=== PATIENT | female | born 1965 | race Caucasian/White ===

== ENCOUNTER 2018-10-21 09:22 | Emergency (ER) | payer MEDICARE, SELFPAY ==
[2018-10-21] VITALS (52 sets, daily range): BP systolic 90–148; BP diastolic 39–123; PULSE 0–144; RESP 9–31; TEMP 36.6; O2SAT 75–99
--- NOTE | 2018-10-21 09:36 | W.ED.GENAD ---
Discharge Plan Disposition Patient Disposition: HOME Condition: Improving Discharge Details Chief Complaint: Dizzy/Sync Clinical Impression: Dehydration, Dizziness, UTI (urinary tract infection) Primary Care Provider: Shauna,Local ED Provider: Myriam Quesada Home Meds and New Rx's Prescriptions: New cephalexin [Keflex] 500 mg capsule 500 mg PO BID 7 Days Qty: 14 RF: 0 Continued carvedilol 25 mg Tablet 50 mg PO BID RF: 0 hydroxyzine HCl 25 mg Tablet 25 mg PO DAILY RF: 0 losartan 100 mg Tablet 100 mg PO DAILY RF: 0 levothyroxine 137 mcg Capsule 137 mcg PO BID RF: 0 glipizide 10 mg Tablet 10 mg PO DAILY RF: 0 omeprazole 40 mg Capsule,Delayed Release(Dr/Ec) 40 mg PO DAILY RF: 0 gabapentin 300 mg Capsule 300 mg PO BID RF: 0 diphenhydramine-acetaminophen [Tylenol PM Extra Strength] 25-500 mg Tablet 1 tab PO BID RF: 0 duloxetine 60 mg Capsule,Delayed Release(Dr/Ec) 60 mg PO DAILY RF: 0 spironolactone 50 mg Tablet 50 mg PO DAILY RF: 0 metformin 500 mg Tablet 500 mg PO BID RF: 0 aspirin 81 mg Tablet,Chewable 81 mg PO DAILY RF: 0 Discharge Instructions Instructions: Dehydration (ED), Urinary Tract Infection in Women (ED), Dizziness (ED) Additional Instructions: Drink plenty of fluids and get plenty of rest. Your thyroid tests were noted to be slightly high indicating that you should possibly lower your dose of your levothyroxine. You can discuss this with your primary care doctor for medication management. Take the antibiotics until finished. Alternate Tylenol and Motrin as needed and directed for pain. Follow-up with your primary care doctor within 1 week for reevaluation. Return to the emergency department if you develop any worsening or new concerning symptoms. Discharge Data Discharge Date/Time-TO BE ENTERED AT DEPARTURE: 10/21/18 16:09 Discharge Physician: Myriam Quesada Medical Decision Making 53yo F w/ a h/o diabetes, melanoma, cardiomyopathy, hypertension, hypertension, hypothyroidism, asthma and Crohn's disease, appendectomy, cholecystectomy, hysterectomy, pacemaker/AICD who presents to the ED with a complaint of dizziness, headache, back pain, fatigue as well as hyperglycemia and hypotension at work today. BP on arrival 90/50. She is afebrile. She appears generally fatigued but nontoxic. Abdomen soft but tender in the right upper quadrant and across lower abdomen. EKG done on arrival notes a rate of 83, sinus with no acute ST ischemic changes. Differential diagnosis includes dehydration, electrolyte abnormality, pneumonia, UTI, acute abdominal abnormality. She has no pulsatile mass, so doubt AAA rupture, but will obtain a CT abdomen and pelvis CTA to rule out acute process. She denies any chest pain or shortness of breath so doubt ACS. 1100 --labs reviewed. Normal white blood cell count, electrolytes. Glucose 268. Lactate 2.8. Magnesium 1.5. Troponin negative. TSH 0.06. Free T4 1.8. CT negative for any acute process. We will continue IV fluids, urine pending. 1440 --patient feels much better after fluids and eating food here. Urinalysis notes findings consistent with possible UTI. Will give dose of antibiotics here. Blood pressure 126/74. She appears comfortable and in no acute distress. Repeat lactate downtrending but still at 2. Patient was offered additional IV fluids but she is declining stating her right is coming. She states she feels much better would like to go home. She is advised to follow-up with her primary care doctor for reevaluation and to return here at any time if worse. Medical Records Medical records reviewed: Yes I reviewed the patient's medical records. Imaging Data Radiologic Study: Radiologist's impression: PA AND LATERAL CHEST: The heart is not enlarged. There is a transvenous cardiac pacemaker in position. The lungs are clear. No pleural effusions seen. CONCLUSION: No evidence of acute process. ABDOMEN AND PELVIC CTA: CT angiography was performed with multi slice acquisition and multi planar and 3D reconstruction. CT angiography was performed with intravenous infusion of 100 cc's of Omnipaque 350. Superior most aspect of the liver is not included on the scanning field. Liver, spleen and pancreas appear grossly unremarkable. 1.5 cm. left adrenal nodule of low attenuation, likely benign. The kidneys are unremarkable in appearance. No abdominal or pelvic adenopathy. No significant abdominal wall hernia. Appendix appears to have been surgically removed. No evidence of bowel obstruction. Abdominal aorta is of normal diameter. No dissection or aneurysm. Major aortic branches appear normal. CONCLUSION: Negative CTA abdomen/pelvis. Note is made of degenerative changes of the lumbar spine with multi level disc space narrowing and hypertrophic changes of the endplates and facet joints, Lab Data Lab results reviewed: Yes I reviewed the patient's lab results. 10/21/18 13:15 Urine - Reflex from Ua Urine Culture - Pending Laboratory Tests Range/Units 10/21/18 10/21/18 10/21/18 09:44 09:44 09:44 WBC (4.4-10.8) k/cumm 9.45 RBC (4.00-5.20) m/cumm 4.29 Hgb (12.0-15.5) g/dL 12.9 Hct (36.0-46.0) % 39.0 MCV (80-95) fL 90.9 MCH (27.0-33.0) pg 30.1 MCHC (32.0-36.0) g/dL 33.1 RDW (11.7-14.6) % 13.2 Plt Count (130-400) x1000/uL 462 H MPV (8.0-11.0) fL 9.5 Immature Gran % 0.2 Neutrophils % 74.4 Lymphocytes % 15.2 Monocytes % 6.3 Eosinophils % 3.5 Basophils % 0.4 Absolute Neutrophils (1.2-6.7) k/cumm 7.02 H Absolute Lymphocytes (1.2-3.4) k/cumm 1.44 Absolute Monocytes (0.11-0.7) k/cumm 0.60 Absolute Eosinophils (0.0-0.7) k/cumm 0.33 Absolute Basophils (0.0-0.2) k/cumm 0.04 PT (9.3-11.0) sec 9.8 INR (0.9-1.1) 1.0 Sodium (136-145) mmol/L 138 Potassium (3.5-5.1) mmol/L 3.8 Chloride (98-107) mmol/L 102 Carbon Dioxide (21.0-32.0) mmol/L 25.3 Anion Gap (3-11) mmol/L 10.7 BUN (7-18) mg/dL 11 Creatinine (0.55-1.02) mg/dL 0.82 Estimated GFR/1.73 m2 (mL/min/1.73m2) >= 60.00 Glucose (70-100) mg/dL 268 H Lactate (0.6-1.4) mmol/L Calcium (8.5-10.1) mg/dL 9.2 Magnesium (1.8-2.4) mg/dL 1.5 L Total Bilirubin (0.2-1.0) mg/dL 0.4 Conjugated Bilirubin (0.00-0.20) mg/dL 0.10 AST (15-37) U/L 24 ALT (12-78) U/L 43 Alkaline Phosphatase (46-116) U/L 101 Troponin I (0.00-0.06) ng/mL < 0.05 Total Protein (6.4-8.2) g/dL 7.7 Albumin (3.4-5.0) g/dL 3.5 TSH (0.36-3.74) uIU/mL 0.06 L Free T4 (0.76-1.46) ng/dL Urine Color (Yellow) Urine Clarity (Clear) Urine pH (5-8) Ur Specific [place] (1.005-1.025) Urine Protein (Negative) mg/dL Urine Ketones (Negative) mg/dL Urine Blood (Negative) Urine Nitrite (Negative) Urine Bilirubin (Negative) Urine Urobilinogen (Up TO 0.2) EU/dL Ur Leukocyte Esterase (Negative) Urine RBC (0-2) Urine WBC (0-5) HPF Ur Epithelial Cells (Negative) HPF Urine Crystals (Negative) HPF Urine Bacteria (Negative) HPF Urine Casts (Negative) LPF Urine Mucus (Negative) Ur Culture Indicated? Urine Glucose (Negative) mg/dL Range/Units 10/21/18 10/21/18 10/21/18 10:30 10:30 13:15 WBC (4.4-10.8) k/cumm RBC (4.00-5.20) m/cumm Hgb (12.0-15.5) g/dL Hct (36.0-46.0) % MCV (80-95) fL MCH (27.0-33.0) pg MCHC (32.0-36.0) g/dL RDW (11.7-14.6) % Plt Count (130-400) x1000/uL MPV (8.0-11.0) fL Immature Gran % Neutrophils % Lymphocytes % Monocytes % Eosinophils % Basophils % Absolute Neutrophils (1.2-6.7) k/cumm Absolute Lymphocytes (1.2-3.4) k/cumm Absolute Monocytes (0.11-0.7) k/cumm Absolute Eosinophils (0.0-0.7) k/cumm Absolute Basophils (0.0-0.2) k/cumm PT (9.3-11.0) sec INR (0.9-1.1) Sodium (136-145) mmol/L Potassium (3.5-5.1) mmol/L Chloride (98-107) mmol/L Carbon Dioxide (21.0-32.0) mmol/L Anion Gap (3-11) mmol/L BUN (7-18) mg/dL Creatinine (0.55-1.02) mg/dL Estimated GFR/1.73 m2 (mL/min/1.73m2) Glucose (70-100) mg/dL Lactate (0.6-1.4) mmol/L 2.8 H* Calcium (8.5-10.1) mg/dL Magnesium (1.8-2.4) mg/dL Total Bilirubin (0.2-1.0) mg/dL Conjugated Bilirubin (0.00-0.20) mg/dL AST (15-37) U/L ALT (12-78) U/L Alkaline Phosphatase (46-116) U/L Troponin I (0.00-0.06) ng/mL Total Protein (6.4-8.2) g/dL Albumin (3.4-5.0) g/dL TSH (0.36-3.74) uIU/mL Free T4 (0.76-1.46) ng/dL 1.80 H Urine Color (Yellow) Yellow Urine Clarity (Clear) Sl cloudy Urine pH (5-8) 6.0 Ur Specific [place] (1.005-1.025) 1.010 Urine Protein (Negative) mg/dL Negative Urine Ketones (Negative) mg/dL Negative Urine Blood (Negative) Negative Urine Nitrite (Negative) Positive H Urine Bilirubin (Negative) Negative Urine Urobilinogen (Up TO 0.2) EU/dL 0.2 Ur Leukocyte Esterase (Negative) Negative Urine RBC (0-2) 0-2 Urine WBC (0-5) HPF 0-2 Ur Epithelial Cells (Negative) HPF Rare Urine Crystals (Negative) HPF Negative Urine Bacteria (Negative) HPF Many Urine Casts (Negative) LPF Negative Urine Mucus (Negative) Negative Ur Culture Indicated? Yes Urine Glucose (Negative) mg/dL Negative Range/Units 10/21/18 15:21 WBC (4.4-10.8) k/cumm RBC (4.00-5.20) m/cumm Hgb (12.0-15.5) g/dL Hct (36.0-46.0) % MCV (80-95) fL MCH (27.0-33.0) pg MCHC (32.0-36.0) g/dL RDW (11.7-14.6) % Plt Count (130-400) x1000/uL MPV (8.0-11.0) fL Immature Gran % Neutrophils % Lymphocytes % Monocytes % Eosinophils % Basophils % Absolute Neutrophils (1.2-6.7) k/cumm Absolute Lymphocytes (1.2-3.4) k/cumm Absolute Monocytes (0.11-0.7) k/cumm Absolute Eosinophils (0.0-0.7) k/cumm Absolute Basophils (0.0-0.2) k/cumm PT (9.3-11.0) sec INR (0.9-1.1) Sodium (136-145) mmol/L Potassium (3.5-5.1) mmol/L Chloride (98-107) mmol/L Carbon Dioxide (21.0-32.0) mmol/L Anion Gap (3-11) mmol/L BUN (7-18) mg/dL Creatinine (0.55-1.02) mg/dL Estimated GFR/1.73 m2 (mL/min/1.73m2) Glucose (70-100) mg/dL Lactate (0.6-1.4) mmol/L 2.0 H Calcium (8.5-10.1) mg/dL Magnesium (1.8-2.4) mg/dL Total Bilirubin (0.2-1.0) mg/dL Conjugated Bilirubin (0.00-0.20) mg/dL AST (15-37) U/L ALT (12-78) U/L Alkaline Phosphatase (46-116) U/L Troponin I (0.00-0.06) ng/mL Total Protein (6.4-8.2) g/dL Albumin (3.4-5.0) g/dL TSH (0.36-3.74) uIU/mL Free T4 (0.76-1.46) ng/dL Urine Color (Yellow) Urine Clarity (Clear) Urine pH (5-8) Ur Specific [place] (1.005-1.025) Urine Protein (Negative) mg/dL Urine Ketones (Negative) mg/dL Urine Blood (Negative) Urine Nitrite (Negative) Urine Bilirubin (Negative) Urine Urobilinogen (Up TO 0.2) EU/dL Ur Leukocyte Esterase (Negative) Urine RBC (0-2) Urine WBC (0-5) HPF Ur Epithelial Cells (Negative) HPF Urine Crystals (Negative) HPF Urine Bacteria (Negative) HPF Urine Casts (Negative) LPF Urine Mucus (Negative) Ur Culture Indicated? Urine Glucose (Negative) mg/dL ECG Data Attestation: I personally reviewed and interpreted this ECG (s) as follows: Interpretation: Rate of 83, sinus, no acute ST elevation or depression. LA 196. QTc 439. QRS 98. HPI General Mode of arrival: ambulatory. Date/Time Provider Initiated Documentation: 10/21/18 09:23. Limitations to Documentation: no limitations. Information obtained by: patient. HPI Narrative: Patient is a 53-year-old female with history of diabetes, melanoma, cardiomyopathy, hypertension, hypothyroidism, asthma who presents to the ED with complaint of dizziness, headache, abdominal pain and back pain for the past 2 days. She admits to multiple dizzy spells at work for the past few days. She states she is also had intermittent diarrhea for the past 3 days states it has been watering brown and denies any bleeding. Her glucose at work today was 276. Her blood pressure was 86/56. 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 She denies fever, chest pain, shortness of breath, nausea, vomiting, blurry vision, urinary symptoms. She states she has had lower back pain for several months but states it has been worse for the past few days. She states her headache is frontal and in the back of her head and currently 7/10. She states she took Tylenol at 730 this morning without relief. Related Data Home Medications Medication Instructions Recorded Confirmed aspirin 81 mg PO DAILY 10/21/18 10/21/18 carvedilol 50 mg PO BID 10/21/18 10/21/18 cephalexin [Keflex] 500 mg PO BID 7 Days #14 cap 10/21/18 diphenhydramine-acetaminophen 1 tab PO BID 10/21/18 10/21/18 [Tylenol PM Extra Strength] duloxetine 60 mg PO DAILY 10/21/18 10/21/18 gabapentin 300 mg PO BID 10/21/18 10/21/18 glipizide 10 mg PO DAILY 10/21/18 10/21/18 hydroxyzine HCl 25 mg PO DAILY 10/21/18 10/21/18 levothyroxine 137 mcg PO BID 10/21/18 10/21/18 losartan 100 mg PO DAILY 10/21/18 10/21/18 metformin 500 mg PO BID 10/21/18 10/21/18 omeprazole 40 mg PO DAILY 10/21/18 10/21/18 spironolactone 50 mg PO DAILY 10/21/18 10/21/18 Previous Rx's Medication Instructions Recorded cephalexin [Keflex] 500 mg PO BID 7 Days #14 cap 10/21/18 Allergies Allergy/AdvReac Type Severity Reaction Status Date / Time erythromycin base Allergy Hives Unverified 10/21/18 09:33 Sulfa (Sulfonamide Allergy Hives Unverified 10/21/18 09:30 Antibiotics) General Stated Complaint: Dizzy/Sync SUNDAR: 2 Review of Systems Review of Systems All systems reviewed & are unremarkable except as noted in HPI and below Constitutional Reports as per HPI, Denies chills and Denies fever(s) Eyes Denies blurry vision ENT Reports dizziness, Denies sore throat and Denies throat swelling Cardiovascular Denies chest pain and Denies dyspnea Respiratory Denies cough and Denies dyspnea Gastrointestinal Denies abdominal pain, Denies diarrhea and Denies vomiting Genitourinary Denies hematuria and Denies dysuria Musculoskeletal Denies back pain and Denies numbness Integumentary/Breasts Denies lesions and Denies rash Neurologic Reports dizziness, Denies focal weakness and Denies numbness Allergic/Immunologic Denies throat swelling [facility] Medical History Asthma (Chronic) Cardiomyopathy (Acute) Diabetes (Chronic) History of hysterectomy (Chronic) HTN (hypertension) (Chronic) Hypothyroidism (Chronic) Melanoma (Acute) Osteoarthritis (Chronic) Surgical History AICD (automatic cardioverter/defibrillator) present (Acute) History of appendectomy (Chronic) History of tonsillectomy (Chronic) Hx of cholecystectomy (Chronic) Pacemaker (Acute) Social History Smoking/Tobacco Use Status: Former Tobacco Use Quit Date: 04/02/86 Alcohol Intake: never Substance use type: does not use Do you feel safe at home: Yes Do you feel safe in your relationship?: Yes Exam Const General: cooperative, healthy appearing and no acute distress HENMT Head: normal to inspection Face and sinus: normal facial exam Eyes General: appearance normal, both eyes and all related structures Pupils: PERRL EOM: EOM intact bilaterally Neck Neck: normal visual inspection and No submandibular swelling Lymphatic: no lymphadenopathy noted Chest Chest: normal inspection of the chest and no tenderness Resp Effort & Inspection: normal respiratory effort and able to speak in complete sentences Auscultation: clear to auscultation bilaterally Cardio Rate: regular rate Rhythm: regular rhythm GI Inspection: normal to inspection and obesity Palpation: soft, not firm, not rigid and tender (across lower abdomen) in the RUQ Auscultation: normal bowel sounds Skin General skin exam: no rashes or lesions noted Neuro General: alert, awake and oriented x3 Cognition: normal cognition Speech: speech normal Motor: muscle tone normal throughout Sensory Exam: no sensory deficits noted Extrem General: normal to inspection, full ROM, normal capillary refill, no calf tenderness bilaterally and no edema Psych Appearance: grossly normal Mental Status: mental status grossly normal Speech and Movement: speech and movement normal Affect: normal affect Course Vital Signs Temperature 97.9 F 10/21/18 09:28 Pulse 83 10/21/18 09:28 Respiratory Rate 15 10/21/18 09:28 Pulse Oximetry 97 10/21/18 09:28 Temperature 97.9 F 10/21/18 09:28 Temperature Source Skin 10/21/18 09:28 Pulse 83 10/21/18 09:28 Respiratory Rate 15 10/21/18 09:28 Pulse Oximetry 97 10/21/18 09:28 Oxygen Delivery Method Room Air 10/21/18 09:28 Oxygen Flow Rate 0 10/21/18 09:28 Pain Level 7 10/21/18 09:28
[2018-10-21] MEDS: Normal Saline 1,000 ML 1000 ML IV ×2 (09:43→11:30)
[2018-10-21 10:02] LABS: Abs Immature Grans 0.02 k/cumm (0.0-0.09); Absolute Basophil Count 0.04 k/cumm (0.0-0.2); Absolute Eosinophil Count 0.33 k/cumm (0.0-0.7); Absolute Lymphocyte Count 1.44 k/cumm (1.2-3.4); Absolute Neutrophil Count 7.02 k/cumm (1.2-6.7); Basophils % 0.4; Eosinophils % 3.5; HGB 12.9 g/dL (12.0-15.5); Immature Grans % 0.2; Lymphocytes % 15.2; Mean Corp. HGB Concentration 33.1 g/dL (32.0-36.0); Mean Corpuscular Hemoglobin 30.1 pg (27.0-33.0); Mean Corpuscular Volume 90.9 fL (80-95); Mean Platelet Volume 9.5 fL (8.0-11.0); Monocytes % 6.3; Neutrophils % 74.4; Platelet Count 462 x1000/uL (130-400); RBC 4.29 m/cumm (4.00-5.20); RBC Distribution Width 13.2 % (11.7-14.6); White Blood Cell Count 9.45 k/cumm (4.4-10.8)
[2018-10-21 10:08] LABS: Prothrombin Time 9.8 sec (9.3-11.0)
[2018-10-21 10:21] LABS: ALT 43 U/L (12-78); AST 24 U/L (15-37); Albumin 3.5 g/dL (3.4-5.0); Alkaline Phosphatase 101 U/L (46-116); Anion Gap 10.7 mmol/L (3-11); BUN 11 mg/dL (7-18); Bilirubin, Total 0.4 mg/dL (0.2-1.0); CO2 25.3 mmol/L (21.0-32.0); CREATININE 0.82 mg/dL (0.55-1.02); Calcium 9.2 mg/dL (8.5-10.1); Chloride 102 mmol/L (98-107); Glucose 268 mg/dL (70-100); Magnesium 1.5 mg/dL (1.8-2.4); Potassium 3.8 mmol/L (3.5-5.1); Sodium 138 mmol/L (136-145); TSH 0.06 uIU/mL (0.36-3.74); Total Protein 7.7 g/dL (6.4-8.2)
[2018-10-21 10:22] LABS: Troponin I < 0.05 ng/mL (0.00-0.06)
[2018-10-21 10:41] LABS: Lactate 2.8 mmol/L (0.6-1.4)
[2018-10-21] MEDS: Ondansetron 4 MG/2 ML VIAL IVP (10:45)
[2018-10-21] MEDS: Omnipaque 350 MG/ML 100 ML BTL IJ (11:17)
--- NOTE | 2018-10-21 11:19 | DI.CT_ITS ---
SYMPTOM/DIAGNOSIS: DIFFUSE ABD PAIN, WORSE RUQ, AND LOW ABD ABDOMEN AND PELVIC CTA: CT angiography was performed with multi slice acquisition and multi planar and 3D reconstruction. CT angiography was performed with intravenous infusion of 100 cc's of Omnipaque 350. Superior most aspect of the liver is not included on the scanning field. Liver, spleen and pancreas appear grossly unremarkable. 1.5 cm. left adrenal nodule of low attenuation, likely benign. The kidneys are unremarkable in appearance. No abdominal or pelvic adenopathy. No significant abdominal wall hernia. Appendix appears to have been surgically removed. No evidence of bowel obstruction. Abdominal aorta is of normal diameter. No dissection or aneurysm. Major aortic branches appear normal. CONCLUSION: Negative CTA abdomen/pelvis. Note is made of degenerative changes of the lumbar spine with multi level disc space narrowing and hypertrophic changes of the endplates and facet joints, particularly at L 4-5 and L 5-S 1.
--- NOTE | 2018-10-21 11:59 | DI.RAD_ITS ---
SYMPTOMS/DIAGNOSIS: WEAKNESS, DIZZINESS, ? ACUTE DISEASE PA AND LATERAL CHEST: The heart is not enlarged. There is a transvenous cardiac pacemaker in position. The lungs are clear. No pleural effusions seen. CONCLUSION: No evidence of acute process.
--- NOTE | 2018-10-21 13:16 | NUR.NOTE ---
Nursing Note: pt ambulated to and from bathroom without difficulty. steady gait noted.
[2018-10-21 13:22] LABS: Bilirubin Negative (Negative); Blood Negative (Negative); Clarity Sl Cloudy (Clear); Glucose Negative (Negative); Ketones Negative (Negative); Leukocyte Esterase Negative (Negative); Nitrite Positive (Negative); Urobilinogen 0.2 EU/dL (Up TO 0.2)
[2018-10-21 13:45] LABS: Bacteria Many HPF (Negative); C & S Indicated? Yes; Casts Negative LPF (Negative); Crystals Negative HPF (Negative); Epithelial Cells Rare HPF (Negative); Mucus Negative (Negative); RBC 0-2 (0-2); WBC 0-2 HPF (0-5)
[2018-10-21] MEDS: Cephalexin 500 MG CAP PO (15:46)
[2018-10-21] MEDS: Acetaminophen 325 MG TAB (15:59)
== END 2018-10-21 16:09 | disposition home or self-care (01) ==
LOC: ER 15:29
PROVIDERS: Emergency Provider Physician Assistant
DX: R42 Dizziness and giddiness (principal); E86.0 Dehydration; N39.0 Urinary tract infection, site not specified; I95.9 Hypotension, unspecified; E11.65 Type 2 diabetes mellitus with hyperglycemia; Z79.84 Long term (current) use of oral hypoglycemic drugs; I10 Essential (primary) hypertension; Z95.810 Presence of automatic (implantable) cardiac defibrillator
CPT/HCPCS: 36415; 80053; 80076; 87077; 93005; 96361; 96374; 99285; 71046; 74174; 81003; 81015; 83605; 83735; 84439; 84443; 84484; 85025; 85610; 87086; 87186; 93010; J2405; J3490

== ENCOUNTER 2019-01-26 08:56 | Outpatient (CLI) | payer MEDICARE, OTHER, SELFPAY ==
--- NOTE | 2019-01-26 12:05 | DI.RAD_ITS ---
EXAM: XR KNEE RT 4V AP,LAT,MIL,PAT INDICATION: PAIN S/P BLUNT TRAUMA RT ANTERIOR LATERAL KNEE ON 01/23, M25.561. COMPARISON: No exams were available for comparison TECHNIQUE: 2D digital imaging was performed. FINDINGS: No fracture or joint effusion is seen. There are moderate degenerative changes of the patellofemoral joint. There is minimal periarticular spurring at the femoral tibial joint. There are incidental c alcifications in the anterior subcutaneous fat. IMPRESSION: Patellofemoral degenerative changes. No acute abnormality.
== END 2019-01-26 09:16 ==
PROVIDERS: Visit Provider Nurse Practitioner Family
DX: M25.561 Pain in right knee (principal); M22.2X1 Patellofemoral disorders, right knee
CPT/HCPCS: 73564

== ENCOUNTER 2019-02-25 11:03 | Outpatient (CLI) | payer OTHER, SELFPAY ==
--- NOTE | 2019-02-25 14:17 | DI.CT_ITS ---
EXAM: CT LOWER EXTREMITY RT WO CLINICAL HISTORY: PERSISTENT PAIN, RT KNEE PAIN, M25.561, PAIN APPEARS TO BE RELATED TO BURSA TECHNIQUE: NONCONTRAST COMPARISON: XR KNEE RT 4V AP,LAT,MIL,PAT from 01/26/2019 FINDINGS: Bones: Unremarkable. No fracture or dislocation. Soft tissues: Unremarkable. No evidence of a popliteal cyst. Vasculature: Unremarkable. Joint: No effusion. Mild degenerative changes in the knee. IMPRESSION: No acute abnormality.
== END 2019-02-25 11:23 ==
PROVIDERS: Visit Provider Nurse Practitioner Family
DX: M25.561 Pain in right knee (principal)
CPT/HCPCS: 73700

== ENCOUNTER 2019-12-03 03:46 | Outpatient (CLI) | payer MEDICARE, SELFPAY ==
[2019-12-04 20:40] LABS: COVID-19 RT-PCR Result NEGATIVE (Negative)
== END 2019-12-03 04:06 ==
PROVIDERS: PCP Family Medicine; Visit Provider Orthopaedic Surgery
DX: Z11.59 Encounter for screening for other viral diseases (principal); Z01.818 Encounter for other preprocedural examination
CPT/HCPCS: U0003

== ENCOUNTER 2019-12-06 08:10 | Day surgery (SDC) | payer OTHER, MEDICARE, MEDICAID, SELFPAY ==
[2019-12-06 08:25] VITALS: BP 143/90; PULSE 89; RESP 18; TEMP 36.3; O2SAT 97
[2019-12-06] MEDS: Lactated Ringers 1,000 ML 80 ML IV (09:04)
[2019-12-06] MEDS: ceFAZolin 2 GM/50 ML BAG IVPB (10:16)
[2019-12-06] MEDS: methylPREDNISolone ACETATE 80 MG/ML VIAL (10:50)
--- NOTE | 2019-12-06 10:56 | W.PM.DSUDISC ---
Discharge Plan Disposition Patient Disposition: HOME Condition: Good Discharge Details Reason For Visit: EXCISION OF R PREPATELLAR BURSA Attending Provider: Ap Campbell Primary Care Provider: Victor Manuel Mckee Home Meds and New Rx's Prescriptions: New ibuprofen 800 mg tablet 800 mg PO TID Qty: 30 RF: 0 hydrocodone-acetaminophen 5-325 mg tablet 1 tab PO Q6H PRN (Reason: pain) Qty: 10 RF: 0 Continued levothyroxine 175 mcg Tablet 175 mcg PO DAILY RF: 0 atorvastatin 20 mg Tablet 20 mg PO HS RF: 0 albuterol sulfate 2.5 mg /3 mL (0.083 %) Solution For Nebulization 2.5 mg INHALATION Q4H PRNRF: 0 alendronate 70 mg Tablet 70 mg PO QWEEK RF: 0 potassium chloride [K-Tab] 10 mEq Tablet Extended Release 10 meq PO DAILY RF: 0 acetaminophen 650 mg Tablet 650 mg PO BID PRNRF: 0 beclomethasone dipropionate 80 mcg/actuation Aerosol 160 mcg INHALATION DAILY RF: 0 nystatin 100,000 unit/gram Cream 1 applic TOPICAL QID PRNRF: 0 hydroxyzine HCl 25 mg Tablet 25 mg PO QID PRNRF: 0 albuterol 90 mcg/actuation Aerosol 180 mcg INHALATION Q4H PRN PRNRF: 0 ergocalciferol (vitamin D2) 1,250 mcg (50,000 unit) Capsule 1,250 mcg PO .TWICE WEEKLY RF: 0 diphenhydramine-acetaminophen [Acetaminophen PM Extra Str] 25-500 mg Tablet 2 tab PO QHS PRNRF: 0 multivitamin Capsule 1 cap PO DAILY RF: 0 fluticasone propionate 50 mcg/actuation [place],Suspension 1 spray INTRANASAL BID RF: 0 bupropion HCl [Wellbutrin XL] 300 mg Tablet Extended Release 24 Hr 300 mg PO QAM RF: 0 duloxetine [Cymbalta] 30 mg Capsule,Delayed Release(Dr/Ec) 30 mg PO DAILY RF: 0 diclofenac sodium [Voltaren] 1 % Gel 2 g TOPICAL QID MDD 4 g RF: 0 hydroxyzine HCl 25 mg Tablet 25 mg PO DAILY RF: 0 losartan 100 mg Tablet 100 mg PO DAILY RF: 0 glipizide 10 mg Tablet 10 mg PO BID RF: 0 omeprazole 40 mg Capsule,Delayed Release(Dr/Ec) 40 mg PO DAILY RF: 0 diphenhydramine-acetaminophen [Tylenol PM Extra Strength] 25-500 mg Tablet 1 tab PO BID RF: 0 spironolactone 50 mg Tablet 50 mg PO DAILY RF: 0 metformin 500 mg Tablet 1,000 mg PO BID RF: 0 aspirin 81 mg Tablet,Chewable 81 mg PO DAILY RF: 0 carvedilol 25 mg tablet 100 mg PO BID RF: 0 duloxetine 60 mg capsule,delayed release(DR/EC) 60 mg PO HS RF: 0 gabapentin 300 mg capsule 300 mg PO BID RF: 0 Discharge Instructions Additional Instructions: Elevate R leg on 1-2 pillows when sitting. Apply cryocuff to R knee 4 times/day for 1 hour each time. Crutches or walker to walk. Put only as much weight as your pain allows on R leg. May shower and get dressing wet after 48 hours. Don't try to remove dressing. Let it come off by itself, or we will remove it at follow up. Follow up with in 2 weeks. Take ibuprofen 3 times/day for 10 days. Take hydrocodone for breakthru pain, if needed. Referrals: Ap Campbell MD [ [facility] STAFF PHYSICIAN] - (f/u in 2 weeks.) Equipment/Supplies: Partial Weight Bearing Crutches Activity:: Activity as Tolerated Remove Dressings/Wound Care:: Do Not Remove Shower/Bathe:: 48 hours Diet:: As Tolerated Discharge Orders Discharge Orders: Discharge Order (Routine); Ordered 12/06/19 Ordered By: Ap Campbell DS: Diagnosis Discharge Diagnosis (1) Prepatellar bursitis, right knee: Status: Acute
[2019-12-06 11:18] VITALS: BP 98/61; PULSE 75; RESP 20; TEMP 36.3; O2SAT 96
[2019-12-06 11:23] VITALS: BP 95/62; PULSE 76; RESP 21; TEMP 36.3; O2SAT 94
[2019-12-06 11:28] VITALS: BP 97/62; PULSE 75; RESP 20; TEMP 36.3; O2SAT 95
[2019-12-06 11:42] VITALS: BP 107/63; PULSE 73; RESP 12; TEMP 36.5; O2SAT 94
[2019-12-06] MEDS: HYDROcodone 5/Acetaminophen 325 TAB PO (12:19)
[2019-12-06 12:22] VITALS: BP 123/74; PULSE 77; RESP 16; TEMP 36.4; O2SAT 93
--- NOTE | 2019-12-06 16:12 | W.PM.OP ---
Date of service: 12/06/19 Time of Service: 10:12 Operative Note Operative Note DATE OF PROCEDURE: 12/06/19 PRE-OP DIAGNOSIS: Right prepatellar bursitis POST-OP DIAGNOSIS: same PROCEDURE: Excision prepatellar bursa right knee SURGEON: Ap Campbell [employer] OPERATOR HELPER: Evelin Pedersen ANESTHESIA: MARCY PATHOLOGY: none sent COMPLICATIONS: None Patient was transported to: PACU Patient's condition: stable Indications: This is a 54-year-old morbidly obese white female who is complained of anterior knee pain since an injury at her place of employment on 01/23/2019. She was struck on the anterior aspect of her knee by a wheelchair. She is continued to have anterior knee pain since that time. She has failed to respond to conservative treatment. Imaging has been difficult. The CT scan suggested the thickening of the prepatellar bursa. MRI scan was unobtainable because of an implanted defibrillator. Because of the length of time of symptoms and because the prepatellar bursa is fairly superficial, I felt that excision of the prepatellar bursa was the best course of treatment to help alleviate her pain. Risk and complication procedure explained patient detail preop. Procedure Description: Patient was taken the operating room on 12/06/2019 and placed supine operative table. General anesthetic was administered. Proximal tourniquet was applied to the right thigh and then the right knee was prepped and draped free in usual sterile fashion. Under proximal tourniquet control incision was made beginning just proximal to the patella and extending in the midline down to the tibial tubercle distally. Incision was carried down through the skin and subcu to the prepatellar bursa. There was some thickening and scarring the prepatellar bursa especially at the inferior pole of patella. The prepatellar bursa and tendon sheath the patella tendon was excised. Hemostasis obtained electrocautery. The wound margins rotated with 0.5% Marcaine with epinephrine solution from the skin down to the knee joint capsule. In addition I placed 10 cc of 0.5% Marcaine with epinephrine solution with 80 mg of Depo-Medrol by injection directly into the knee joint to help prevent any intra-articular knee pain. Hemostasis obtained electrocautery. Subtenons fat was approximated interrupted 2-0 Vicryl sutures. And then the skin edges were approximated a running septic with suture of 3-0 Monocryl supplemented with tissue glue. Wounds dressed with Mepilex dressing and then wrapped with 6 inch Scot bandage. Tourniquet was released. The patient's anesthesia was reversed without complications and she was discharged to recovery room in good condition. Patient was discharged home from day surgery unit when fully recovered from her general anesthesia. She was instructed to try to elevate her right leg when sitting. She is to apply Cryo/Cuff to right knee continuously overnight. Tomorrow she will start using the Cryo/Cuff 4 times a day for an hour each time. She may remove her Scot bandage but not her Mepilex dressing after 48 hours. She may then shower and get a Mepilex dressing wet. She is to let the Mepilex dressing either come off by itself will be removed by me at follow-up. She is to use crutches to walk weightbearing as tolerated to the right leg. May discontinue the crutches soon as discomfort allows. She is given a prescription for inflammation and pain of ibuprofen 8 oh milligrams p.o. 3 times daily for 10 days. She is given a prescription for hydrocodone with APAP, 5/325, 1 every 6 hours if needed for breakthrough pain. She will follow-up with Dr. Campbell in 2 weeks
== END 2019-12-06 13:00 | disposition home or self-care (01) ==
PROVIDERS: PCP Family Medicine; Visit Provider Orthopaedic Surgery
PROC: (CPT 27340; principal; 2019-12-06 10:00)
DX: M70.41 Prepatellar bursitis, right knee (principal); I42.9 Cardiomyopathy, unspecified
CPT/HCPCS: 27340; J0690; J1040; J1100; J1885; J2250; J2405; J2704

== ENCOUNTER → 2019-12-22 09:23 | Outpatient (BNVA) | payer MEDICARE, SELFPAY | PROVIDERS: PCP Family Medicine; Referring Provider Family Medicine; Visit Provider Orthopaedic Surgery | DX: Z47.89 Encounter for other orthopedic aftercare (principal); M70.41 Prepatellar bursitis, right knee; I10 Essential (primary) hypertension; E11.9 Type 2 diabetes mellitus without complications; Z79.84 Long term (current) use of oral hypoglycemic drugs ==

== ENCOUNTER → 2020-01-19 10:21 | Outpatient (BNVA) | payer MEDICARE, SELFPAY | PROVIDERS: PCP Family Medicine; Referring Provider Family Medicine; Visit Provider Orthopaedic Surgery | DX: Z47.89 Encounter for other orthopedic aftercare (principal); M70.41 Prepatellar bursitis, right knee ==